=== PATIENT | male | born 1955 | race Caucasian/White ===

== ENCOUNTER 2017-05-23 06:04 | Observation (INO) ==
[2017-05-15 10:13] LABS: Basophils # 0.1 10*3/uL (0.0-0.2); Basophils % 0.8 % (0.0-0.8); Eosinophils # 0.2 10*3/uL (0.0-0.87); Eosinophils % 2.6 % (0.00-10.9); Hematocrit 37.9 VOL% (42.0-52.0); Hemoglobin 13.5 GM/DL (14.0-18.0); Immature Granulocytes % 0.3 %; Immature Granulocytes Absolute 0.02 #; Lymphocytes # 1.7 10*3/uL (1.4-4.0); Lymphocytes % 25.1 % (21.2-54.2); Mean Corpuscular HGB Conc 35.6 GM/DL (32-36); Mean Corpuscular Hemoglobin 34 PG (27-34); Mean Corpuscular Volume 94.8 FL (87-102); Mean Platelet Volume 11.6 FL (9.6-12.0); Monocytes # 0.6 10*3/uL (0.11-0.8); Monocytes % 8.3 % (1.7-12.7); Neutrophils # 4.2 10*3/uL (1.4-7.4); Neutrophils % 62.9 % (38.7-73.9); Platelet Count 232 T/CUMM (130-400); Red Cell Distribution Width 12.2 % (9.3-17.3); White Blood Count 6.6 T/CUMM (4-12)
[2017-05-15 10:15] LABS: Apearance,Urine CLEAR (Clear); Bilirubin,Urine Negative (Negative); Blood, Urine Negative (Negative); Glucose,Urine (UA) Negative (Negative); Ketones,Urine Negative (Negative); Nitrite,Urine Negative (Negative); Protein,Urine Negative; RBC,Urine 1 /HPF (0-4); Urine Color Yellow (Yellow); Urine Specific Gravity 1.008 (1.001-1.035); Urine Urobilinogen < 2.0 EU/DL (0.2-1.0); WBC,Urine <1 /HPF (0-6)
[~2017-05-23 06:04] MED LIST: ALVIMOPAN 12 MG CAPSULE ONE; DIAZEPAM 5 MG TABLET PO ONE; FAMOTIDINE 20 MG TABLET PO ONE; SODIUM PHOSPHATE ENEMA 133 ML BOTTLE RECTAL ONE; cefTRIAXone 1,000 MG VIAL ONE
[2017-05-23] MEDS ORDERED: DIAZEPAM 5 MG TABLET ONE (06:21)
[2017-05-23] MEDS ORDERED: FAMOTIDINE 20 MG TABLET ONE (06:21)
[2017-05-23] MEDS: LACTATED RINGERS 1,000 ML IV SCH (06:45)
[2017-05-23] MEDS ORDERED: cefTRIAXone 1,000 MG VIAL IV ONE (07:00)
[2017-05-23] MEDS ORDERED: SODIUM PHOSPHATE ENEMA 133 ML BOTTLE RECTAL ONE (07:00)
[2017-05-23] MEDS ORDERED: ALVIMOPAN 12 MG CAPSULE PO ONE (07:00)
[2017-05-23] MEDS ORDERED: LIDOCAINE 2% TOP JELLY 20 ML VIAL INTRAURETH ONE (07:40)
[2017-05-23 08:23] LABS: Apearance,Urine Slightly Hazy (Clear); Bilirubin,Urine Negative (Negative); Blood, Urine Moderate mg/dL (Negative); Glucose,Urine (UA) Negative (Negative); Ketones,Urine Negative (Negative); Mucus,Urine Many /LPF (Occasional); Nitrite,Urine Negative (Negative); Protein,Urine Negative; RBC,Urine 8 /HPF (0-4); Squamous Epithelial Cell,Urine Occasional /HPF (0-10); Urine Color Yellow (Yellow); Urine Specific Gravity 1.018 (1.001-1.035); Urine Urobilinogen < 2.0 EU/DL (0.2-1.0); WBC,Urine <1 /HPF (0-6)
[2017-05-23] MEDS ORDERED: ONDANSETRON 4 MG/2 ML VIAL IV PRN ×2 (11:12→11:36)
[2017-05-23] MEDS ORDERED: diphenhydrAMINE 50 MG/1 ML VIAL IV PRN (11:12)
[2017-05-23] MEDS ORDERED: PROPOFOL 200 MG/20 ML VIAL IV ONE (11:28)
[2017-05-23] MEDS ORDERED: MIDAZOLAM 2 MG/2 ML VIAL ONE (11:28)
[2017-05-23] MEDS ORDERED: SEVOFLURANE 1 UNIT/15 MINUTE INH ONE (11:28)
[2017-05-23] MEDS ORDERED: DEXAMETHASONE 10 MG/1 ML VIAL ONE (11:28)
[2017-05-23] MEDS ORDERED: fentaNYL 100 MCG/2 ML VIAL ONE (11:28)
[2017-05-23] MEDS ORDERED: PHENYLEPHRINE 1 MG/10 ML SYRINGE IV ONE (11:29)
[2017-05-23] MEDS ORDERED: LACTATED RINGERS 1,000 ML IV ONE (11:29)
[2017-05-23] MEDS ORDERED: ACETAMINOPHEN 1,000 MG/100 ML VIAL IV ONE (11:29)
[2017-05-23] MEDS ORDERED: NEOSTIGMINE 10 MG/10 ML VIAL ONE (11:29)
[2017-05-23] MEDS ORDERED: ONDANSETRON 4 MG/2 ML VIAL ONE (11:29)
[2017-05-23] MEDS ORDERED: ROCURONIUM 100 MG/10 ML VIAL IV ONE (11:29)
[2017-05-23] MEDS ORDERED: GLYCOPYRROLATE 0.4 MG/2 ML VIAL ONE (11:29)
[2017-05-23] MEDS ORDERED: RANITIDINE 75 MG PO SCH (11:30)
[2017-05-23] MEDS ORDERED: HYDROmorphone PCA 30 MG/30 ML SYRINGE IV SCH (11:30)
[2017-05-23] MEDS ORDERED: HYDROmorphone 2 MG/1 ML VIAL ONE (11:36)
[2017-05-23] MEDS ORDERED: MORPHINE PCA 30 MG/30 ML SYRINGE IV ONE (11:38)
[2017-05-23] MEDS: HYDROmorphone 2 MG/1 ML VIAL IV PRN ×4 (11:40→12:00)
[2017-05-23] MEDS ORDERED: NALOXONE 0.4 MG/ML VIAL IV PRN (11:42)
[2017-05-23] MEDS: MORPHINE PCA 30 MG/30 ML SYRINGE IV SCH (11:59)
[2017-05-23] MEDS ORDERED: ROPIVACAINE 0.5% 30 ML VIAL ONE (12:26)
[2017-05-23] MEDS ORDERED: ACETAMINOPHEN 500 MG TABLET ONE (12:27)
[2017-05-23] MEDS ORDERED: GABAPENTIN 400 MG CAPSULE ONE (12:32)
[2017-05-23] MEDS ORDERED: ACETAMINOPHEN 500 MG TABLET PO ONE (12:33)
[2017-05-23] MEDS ORDERED: GABAPENTIN 400 MG CAPSULE PO ONE (12:37)
[2017-05-23] MEDS: SODIUM CHLORIDE 0.9% 1,000 ML IV SCH (13:57)
[2017-05-23] MEDS: OXYBUTYNIN XL 10 MG TABLET PO SCH (14:32)
[2017-05-23] MEDS: ALVIMOPAN 12 MG CAPSULE PO SCH (21:08)
[2017-05-23] MEDS: METOPROLOL TARTRATE 25 MG TABLET PO SCH (21:11)
[2017-05-24] MEDS: SODIUM CHLORIDE 0.9% 1,000 ML IV SCH (03:09)
[2017-05-24] MEDS: MORPHINE PCA 30 MG/30 ML SYRINGE IV SCH (04:23)
[2017-05-24 06:05] LABS: Basophils % 0.1 % (0.0-0.8); Hematocrit 33.8 VOL% (42.0-52.0); Hemoglobin 11.6 GM/DL (14.0-18.0); Immature Granulocytes % 0.5 %; Immature Granulocytes Absolute 0.08 #; Lymphocytes # 1.2 10*3/uL (1.4-4.0); Lymphocytes % 7.5 % (21.2-54.2); Mean Corpuscular HGB Conc 34.3 GM/DL (32-36); Mean Corpuscular Hemoglobin 33 PG (27-34); Mean Corpuscular Volume 97.4 FL (87-102); Mean Platelet Volume 12.1 FL (9.6-12.0); Monocytes # 1.5 10*3/uL (0.11-0.8); Monocytes % 8.7 % (1.7-12.7); Neutrophils # 13.8 10*3/uL (1.4-7.4); Neutrophils % 83.2 % (38.7-73.9); Platelet Count 255 T/CUMM (130-400); Red Blood Count 3.47 MC/CUMM (3.8-5.5); Red Cell Distribution Width 12.9 % (9.3-17.3); White Blood Count 16.6 T/CUMM (4-12)
[2017-05-24 06:33] LABS: Calcium 8.7 MG/DL (8.5-10.1); Osmolality,Calculated 279.3 MOS/KG (273-304); Potassium 4.1 MMOL/L (3.5-5.1)
[2017-05-24] MEDS: OXYBUTYNIN XL 10 MG TABLET PO SCH (09:13)
[2017-05-24] MEDS: ALVIMOPAN 12 MG CAPSULE PO SCH ×2 (09:14→21:25)
[2017-05-24] MEDS: METOPROLOL TARTRATE 25 MG TABLET PO SCH ×4 (09:14→21:30)
[2017-05-24] MEDS ORDERED: oxyCODONE/ACETAMINOPHEN 5-325 MG TABLET PO PRN ×2 (09:21→09:30)
[2017-05-24] MEDS: LACTATED RINGERS 1,000 ML IV SCH (09:26)
[2017-05-24] MEDS: oxyCODONE/ACETAMINOPHEN 5-325 MG TABLET PO PRN ×2 (18:12→21:28)
[2017-05-25] MEDS: oxyCODONE/ACETAMINOPHEN 5-325 MG TABLET PO PRN (07:18)
[2017-05-25] MEDS: METOPROLOL TARTRATE 25 MG TABLET PO SCH ×2 (07:19→09:17)
[2017-05-25 07:46] VITALS: BP 134/75
[2017-05-25] MEDS: OXYBUTYNIN XL 10 MG TABLET PO SCH (09:19)
[2017-05-25] MEDS: ALVIMOPAN 12 MG CAPSULE PO SCH (09:20)
== END 2017-05-25 10:55 | disposition home or self-care (01) ==
LOC: N.SDSINP 06:04 → INTOOBSV 06:04 → EDSTATUS 07:30 → N.5E 13:48
PROVIDERS: ADMIT Urology; ATTEND Urology